=== PATIENT | female | born 1995 ===

== ENCOUNTER 2020-03-16 16:07 | Outpatient (CLI) | payer MEDICAID, SELFPAY ==
[2020-03-16] VITALS (67 sets, daily range): BP systolic 0–170; BP diastolic 0–101; PULSE 20–118; RESP 16–19; TEMP 36.7; O2SAT 78–100; BMI 40.7
--- NOTE | 2020-03-16 17:40 | PC.NURSE ---
Spoke with charge nurse at [facility] labor and delivery. She confirmed they do have beds available. States that patient will be going to room 4 and to call report to [place] when patient is leaving.
--- NOTE | 2020-03-16 18:00 | P.TS_ITS ---
Transfer Summary Providers Date of Discharge: 03/16/20 Attending Provider at Transfer: Ingris Bunch MD Anticipated Date of Transfer: Anticipated date of transfer: 03/16/20 Receiving Facility & Provider: Receiving Provider: [Dr. Tomi Contreras] Receiving facility: [[facility]] Diagnoses at Discharge Discharge Diagnosis (1) arrhythmia affecting , antepartum: Status: Acute (2) Elevated blood pressure complicating , antepartum: Status: Acute (3) with 37 weeks completed gestation: Status: Acute Reason for Visit 2 Reason for Visit: Sent from office for irregular heartbeat Hospital Course Hospital Course This is a 25-year-old G1, P0 at 37 weeks and 5 days gestation by LMP 06/26/2019 with JAI of 04/01/2020 who presented to [facility] complaining of spikes in baby's heartbeat . The patient was seen for a routine visit today and in the office was noted to have irregular sounding heartbeat. She was sent for an outpatient biophysical profile that was 8 out of 8. Irregular heartbeat was visible on the ultrasound and the patient was directed to [facility] for further care. She denies any regular contractions, no loss of fluid, no bleeding, and she says she has good movement. She has had no complications during the . She has been receiving care from Dr. Leslee Snyder. On presentation to labor and delivery the patient was hooked up to the monitors and heart tones were found to be very irregular. It seemed that the baseline was around 160 but this would only persist for 5 to 10 seconds and there would be a drop of heart rate to the 80s for 1-2 beats. Then back up again. At times the tracing was so disrupted it was difficult to assess baseline. There were no steady accelerations but quick spikes and good variability. [place] showed irritability and rare contractions. Since she has been on the monitors the baseline has come down to 120s, with some connected tracing for up to 40 seconds, still showing quick interupted spikes and dips. I consulted with JACKLYN Barcenas, at [facility] and he recommended transfer to the laborist on-call Dr. Ben Krishna. The patient's blood pressure has been mildly elevated since admission. She states they did not mention elevated blood pressure at her visit today. Here it was initially 154/87 and now 148/82. Pre-eclamptic profile has been drawn and sent to lab. Results are currently pending. labs: A+ antibody negative, rubella immune, GBS negative, GC chlamydia negative, hepatitis B surface antigen negative, HIV negative, hep C negative, glucose tolerance test 124. Physical Exam Const: COMMON NORMALS: no acute distress and alert GENERAL APPEARANCE: cooperative and comfortable ORIENTATION/CONSCIOUSNESS: Yes oriented to person HENMT: COMMON NORMALS: normocephalic and atraumatic HEAD & SCALP: normocephalic and atraumatic FACE & SINUS: normal facial exam Eye: COMMON NORMALS: Equal, round and reactive pupils present and EOMs intact bilaterally PUPIL: Yes Equal, round and reactive pupils present Chest: COMMONS NORMALS: normal inspection of the chest Resp: COMMON NORMALS: normal respiratory effort and clear to auscultation bilaterally EFFORT & INSPECTION: Yes able to speak in complete sentences AUSCULTATION: clear to auscultation bilaterally Cardio: COMMON NORMALS: regular rhythm RATE: tachycardic (110) RHYTHM: regular rhythm GI: COMMON NORMALS: Soft to palpation (Gravid) PALPATION: Yes Soft to palpation (Gravid) and No Tenderness to palpation present (GI) Extremity: GENERAL: No calf tenderness and Yes edema (1+) Neuro: SENSORIUM/ORIENTATION: Yes alert and Yes oriented to person Psych: COMMON NORMALS: mental status grossly normal and normal affect Skin: COMMON NORMALS: no rashes or lesions noted GENERAL SKIN EXAM: no rashes or lesions noted TS Data Data Completed and Pending: Pending at discharge Category Date Time Status Complete Blood Co unt w/Auto Stat Lab 03/16/20 17:58 Uncollected Comprehensive Met abolic Panel Stat Lab 03/16/20 17:58 Uncollected Protein/Creatinin e Ratio Stat Lab 03/16/20 17:58 Ordered Uric Acid Stat Lab 03/16/20 17:58 Ordered Urinalysis Stat Lab 03/16/20 17:58 Ordered Vitals: Last Vital Signs Temp 98.1 F 03/16/20 16:32 Pulse 88 03/16/20 17:56 Resp 19 H 03/16/20 16:32 BP 144/92 03/16/20 17:56 Transfer Attestations Time Spent in Transfer Care*: greater than 30 min Quality Metrics Clinical Quality Measures: During this hospital stay, did patient experience: None Coding Level of Care Code 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
--- NOTE | 2020-03-16 18:04 | PC.NURSE ---
DR. EASLEY HERE AND WOULD [facility] IF AVAILABLE. [facility] CALLED AND INFORMATION GIVEN AND THEY WILL CALL ME BACK WITH ETA.
[2020-03-16 18:07] LABS: Add Urine Microscopic? NO
--- NOTE | 2020-03-16 18:11 | PC.NURSE ---
1809 LIZZ FROM [facility] CALLED AND STATED THAT IT WOULD BE AROUND 1999. THAT THEY HAD TO TAKE A CRITICAL PATIENT TO [place] AND THEN THEY WOULD BE RIGHT HERE TO TRANSPORT.
[2020-03-16 18:12] LABS: Basophils % 0.2 %; Eosinophils # 0.1 10^3/uL (0.0-0.8); Eosinophils % 0.6 %; Hematocrit 37.7 % (37.0-47.0); Hemoglobin 12.1 g/dL (11.5-15.3); Lymphocytes # 2.1 10^3/uL (0.8-4.8); Lymphocytes % 21.7 %; Mean Corpuscular HGB Conc 32.1 g/dL (30.0-36.0); Mean Corpuscular Hemoglobin 28.2 pg (28.0-34.0); Mean Corpuscular Volume 87.9 fL (81-99); Mean Platelet Volume 10.9 fL (7.4-10.4); Monocytes # 0.6 10^3/uL (0.2-0.9); Monocytes % 6.6 %; Neutrophils # 6.73 10^3/uL (1.8-7.7); Neutrophils % 69.8 %; Nucleated Red Blood Cells % 0 %; Platelet Count 305 10^3/cmm (130-400); Red Blood Count 4.29 10^6/uL (4.1-5.3); White Blood Count 9.7 10^3/uL (4.0-10.0)
[2020-03-16 18:15] LABS: Bilirubin Urine Neg (Negative); Blood Urine Neg (Negative); Glucose Urine UA Norm (Normal); Ketones Urine Negative (Negative); Leukocyte Esterase Urine Negative (Negative); Nitrate Urine Negative (Negative); Protein Urine Neg (Negative); Urine Appearance Clear (CLEAR); Urine Color Yellow (Yellow); Urobilinogen Urine Norm (Negative); pH Urine 6.5 (5-7)
--- NOTE | 2020-03-16 18:22 | PM.HP ---
Providers/Chief Complaint Chief Complaint: Sent from office for irregular heartbeat History of Present Illness brock sepulveda is a 25 year old female at 37 weeks 5 days gestation who presented to [facility] for irregular heartbeat. See transfer summary for further details Review of Systems Const: Denies: fever(s), chills or body aches Eyes: Denies: change in vision ENMT: Denies: throat pain Card: Denies: chest pain, palpitations or irregular heart rhythm Resp: Denies: dyspnea, productive cough or non-productive cough GI: Denies: abdominal pain, nausea or vomiting : Reports: urinary frequency; Denies: flank pain or difficulty voiding Musc: Denies: limited range of motion or muscle weakness Skin/Breast: Denies: rash Neuro: Denies: headache(s), numbness in extremities or weakness in extremities Endo: Denies: polydipsia or excessive sweating Kyle/Lymph: Denies: easy bleeding All/Imm: Denies: throat swelling Medications/Allergies Allergies Allergy/AdvReac Type Severity Reaction Status Date / Time amoxicillin Allergy Mild rash Verified 03/16/20 18:29 PFSH Acute Female Reproductive History: : 1 Para: 0 Other female reproductive history: care with Dr. Leslee Snyder 37w5d, LMP 06/26/2019, JAI 04/01/2020 Blood type A+ antibody negative, rubella immune, GBS negative, GC chlamydia negative, hepatitis B surface antigen negative, HIV negative, hep C negative, glucose tolerance test 124. Vitals/I&O/Wt Last Vital Signs Temp 98.1 F 03/16/20 16:32 Pulse 91 03/16/20 18:11 Resp 19 H 03/16/20 16:32 BP 148/82 03/16/20 18:11 Pulse Ox 98 03/16/20 18:17 Weight last 48 hrs Weight 208 lb 7.337 oz Physical Exam Const: COMMON NORMALS: no acute distress and alert GENERAL APPEARANCE: cooperative and comfortable ORIENTATION/CONSCIOUSNESS: Yes oriented to person HENMT: COMMON NORMALS: normocephalic and atraumatic HEAD & SCALP: normocephalic and atraumatic FACE & SINUS: normal facial exam Eye: COMMON NORMALS: Equal, round and reactive pupils present and EOMs intact bilaterally PUPIL: Yes Equal, round and reactive pupils present Chest: COMMONS NORMALS: normal inspection of the chest Resp: COMMON NORMALS: normal respiratory effort and clear to auscultation bilaterally EFFORT & INSPECTION: Yes able to speak in complete sentences AUSCULTATION: clear to auscultation bilaterally Cardio: COMMON NORMALS: regular rhythm RATE: tachycardic (110) RHYTHM: regular rhythm GI: COMMON NORMALS: Soft to palpation (Gravid) PALPATION: Yes Soft to palpation (Gravid) and No Tenderness to palpation present (GI) Extremity: GENERAL: No calf tenderness and Yes edema (1+) Neuro: SENSORIUM/ORIENTATION: Yes alert and Yes oriented to person Psych: COMMON NORMALS: mental status grossly normal and normal affect Skin: COMMON NORMALS: no rashes or lesions noted GENERAL SKIN EXAM: no rashes or lesions noted Data : 03/16/20 15:40 03/16/20 17:11 A&P Assessment and plan (1) with 37 weeks completed gestation: Status: Acute (2) Elevated blood pressure complicating , antepartum: Preeclamptic profile pending. Patient was not reported to have elevated blood pressure in the office today. Status: Acute (3) arrhythmia affecting , antepartum: Transfer to [facility] for MFM and NICU Status: Acute Attestations Medical Necessity Statement*: arrythmia requiring transfer Coding Level of Care Code Acute Supervisor [employer] for [facility] Diagnoses with 37 weeks completed gestation Z3A.37 Elevated blood pressure complicating , antepartum O16.9 arrhythmia affecting , antepartum O36.8390
--- NOTE | 2020-03-16 18:27 | PC.NURSE ---
Report given to Sangeeta Hernandez at [facility] Labor and Delivery at 1825. Sangeeta given full report including elevated blood pressure readings and detailed descriptions of arrhythmia noted by Dr. Bunch. Sangeeta reports no further questions at this time regarding patient. Discussed visitor policy with her and will report to the patient and family.
[2020-03-16 18:32] LABS: UPRO/UCREAT Ratio 0.17 mg/mg CR; Urine Creatinine 35 mg/dL (28-217); Urine Protein Random 6 mg/dL
[2020-03-16 18:33] LABS: Alanine Aminotransferase 14 U/L (0-33); Albumin Level 3.4 g/dL (3.5-5.2); Alkaline Phosphatase 181 IU/L (35-105); Anion Gap 14.9 (5-19); Aspartate Amino Transferase 19 U/L (0-32); Blood Urea Nitrogen 7 mg/dL (6-20); Calcium 9.3 mg/dL (8.5-10.5); Carbon Dioxide 22 mmol/L (22-29); Chloride 103 mmol/L (98-107); Globulin 3.3 g/dL (1.3-4.6); Glomerular Filtration Rate 196.1 mL/min (90-130); Glucose 88 mg/dL (65-115); Osmolality Calculated 279 mOsm/kg (285-295); Potassium 3.9 mmol/L (3.5-5.1); Sodium 136 mmol/L (136-145); Total Bilirubin 0.2 mg/dL (0.15-1.2); Total Protein 6.7 g/dL (6.6-8.7); Uric Acid 3.1 mg/dL (2.4-5.7)
== END 2020-03-16 21:40 | disposition intermediate care facility (04) ==
LOC: OPOB 16:08 → OBGYN 16:09
PROVIDERS: Visit Provider Family Medicine
DX: O36.8390 Maternal care for abnormalities of the fetal heart rate or rhythm, unspecified trimester, not applicable or unspecified (principal); O16.9 Unspecified maternal hypertension, unspecified trimester; Z3A.37 37 weeks gestation of pregnancy
CPT/HCPCS: 36415; 59025; 80053; 81003; 82570; 84156; 84550; 85025; 99211